=== PATIENT | male | born 1985 | race Caucasian/White ===

== ENCOUNTER 2019-11-09 10:02 | Outpatient (CLI) | payer MEDICAID, SELFPAY ==
--- NOTE | 2019-11-09 | DI.RAD_ITS ---
EXAM: XR KNEE RT 2V AP,LAT INDICATION: pain. COMPARISON: LEFT KNEE 3 VIEW COMPLETE from 02/11/2016 TECHNIQUE: 2D digital imaging was performed. FINDINGS: There are smoothly marginated bony densities adjacent to the tibial tubercle could be related to old Ora-Schlatter disease. The joint spaces are well maintained. A small joint effusion is seen.
== END 2019-11-09 10:22 ==
PROVIDERS: PCP Neuromusculoskeletal Medicine & OMM; Visit Provider Orthopaedic Surgery
DX: M25.561 Pain in right knee (principal); M25.461 Effusion, right knee
CPT/HCPCS: 73560

== ENCOUNTER 2019-11-18 02:06 | Outpatient (CLI) | payer MEDICAID, SELFPAY ==
--- NOTE | 2019-11-18 08:11 | DI.MRI_ITS ---
EXAM: MR LOWER JOINT RT WO CLINICAL HISTORY: PAIN, INTERNAL DERANGEMENT RT KNEE, M23.91. TECHNIQUE: Multiplanar multisequence MRI was performed. COMPARISON: No exams were available for comparison FINDINGS: There is a moderate knee joint effusion. There is slightly abnormal signal in Hoffa fat pad, nonspec ific but could represent impingement or inflammation. No other abnormality seen involving the extens or mechanism. No significant bony signal abnormality seen. Articular cartilage of the joints of the knee appears intact. No meniscal tear. No cruciate ligament tear. No significant collateral ligament injury. IMPRESSION: No evidence of internal derangement. Mildly abnormal signal in Hoffa fat pad directly inferior to th e patella, question mild inflammation or impingement.
== END 2019-11-18 02:26 ==
PROVIDERS: PCP Neuromusculoskeletal Medicine & OMM; Visit Provider Orthopaedic Surgery
DX: M25.561 Pain in right knee (principal); M23.91 Unspecified internal derangement of right knee
CPT/HCPCS: 73721

== ENCOUNTER 2019-12-12 08:15 | Day surgery (SDC) | payer MEDICAID, SELFPAY ==
[2019-12-12] VITALS (7 sets, daily range): BP systolic 94–133; BP diastolic 53–89; PULSE 51–79; RESP 14–20; TEMP 36–37.1; O2SAT 97–100
[2019-12-12] MEDS: Lactated Ringers 1,000 ML 80 ML IV (09:15)
--- NOTE | 2019-12-12 10:19 | NUR.NOTE ---
Nursing Note: Pt preop assessment done. This nurse began process to begin IV. This nurse asked Pt how he does with needles, Pt reports, I don't love them. Pt was sitting in chair. 1st attempt to get IV by this nurse in L hand unsuccessful. This nurse got up and went to get another nurse to help with IV. Nory Cotter RN came in to help. As Nory was looking for an IV site, Pt began to get diaphoretic. Pt was talking to both nurses, then became quite. Pt then passed out/had a vagal response. Pt was then laid flat in recliner, when Pt came to, he attempted to jump out of chair. Once Pt was made aware of where he was, he noticeably calmed down. Pt was reclined flat in recliner. Vitals taken @ 0855: BP: 119/64, HR: 41, O2: 100%. 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 PT vitals taken again at 0905: BP:125/84, T: 36.4, HR: 63, R: 20, O2: 98%. Pt tolerating interventions well. Alirio Henry [employer] B[employer]ENDER in to see Pt, told us to proceed and get the IV in and get the Pt some fluids running. Slade Dale RN was able to establish an IV in the R AC without further problems. Pt tolerated well. notified.
[2019-12-12] MEDS: ceFAZolin 2 GM/50 ML BAG IVPB (10:45)
--- NOTE | 2019-12-12 11:45 | W.PM.DSUDISC ---
Discharge Plan Disposition Patient Disposition: HOME Condition: Good Discharge Details Reason For Visit: Arthroscopy R knee Attending Provider: Phil Thomas Primary Care Provider: Larry Alvarez Meds and New Rx's Prescriptions: New ibuprofen 800 mg tablet 800 mg PO TID Qty: 30 RF: 0 oxycodone-acetaminophen 5-325 mg tablet 1 tab PO Q6H PRN (Reason: pain) Qty: 14 RF: 0 Discharge Instructions Additional Instructions: Crutches to walk. Put as much weight on R leg as your pain allows. Discontinue crutches when you can step on R leg with minimal pain. Apply cryocuff continuously overnite, Tomorrow start to use 4 times/day for 1 hour each time. May remove dressings, shower, and get incisions wet after 48 hours. Leave incisions uncovered when they are dry and sealed. Outpatient physical therapy on Thurs or Fri to begin rehab of R knee post-arthroscopy R knee. Take ibuprofen 3 times/day for 10 days to decrease swelling and inflammation. Take oxycodone for breakthru pain, if needed. Follow up with in 2 weeks. Referrals: Phil Thomas MD [ [facility] STAFF PHYSICIAN] - (f/u in 2 weeks) Equipment/Supplies: Partial Weight Bearing Crutches Activity:: Activity as Tolerated Remove Dressings/Wound Care:: 48 hours Shower/Bathe:: 48 hours Diet:: As Tolerated Discharge Orders Discharge Orders: Discharge Order (Routine); Ordered 12/12/19 Ordered By: Phil Thomas DS: Diagnosis Discharge Diagnosis (1) Internal derangement of right knee: Status: Acute
[2019-12-12] MEDS: oxyCODONE-CR 10 MG TABCR PO (13:02)
--- NOTE | 2019-12-13 17:19 | ROE_ITS ---
DATE OF PROCEDURE: December 12, 2019 PREOPERATIVE DIAGNOSIS: Internal derangement, right knee. POSTOPERATIVE DIAGNOSIS: Same due to synovitis. PROCEDURE: Diagnostic arthroscopy right knee with limited synovectomy. ANESTHESIA: General. SURGEON: Phil Thomas M.D. INDICATIONS: This is a 34-year-old white male with recurrent effusions and pain in his right knee, l imiting activities. He has not responded to conservative treatment. MRI scan showed effusion in his knee but did not provide a specific diagnosis. Because of failure to improve with conservative osvaldo ures and because of the lack of any objective diagnosis, diagnostic arthroscopy was recommended. The patient was advised that at the time of the diagnostic arthroscopy, any pathology that could be angelica ected would be addressed arthroscopically. The risks and complications of the procedure were explain ed to the patient in detail preoperatively. PROCEDURE: The patient was taken to the operating room on 12/12/2019. He was placed supine on the ope rating table and a general anesthetic was administered. The right thigh was placed in the arthroscop ic leg escalera and the right knee was prepped and draped free in the usual sterile fashion. Arthrosco pic portals were established and the right knee was inflated with normal saline solution using the ar throscopy pump. Routine arthroscopic examination then proceeded. Intraoperative photographs were ob tained to document findings. Upon entering the medial compartment he was found to have normal articular cartilage. The medial men iscus appeared intact. Through an anteromedial portal I introduced a right angle probe and the media l meniscus was thoroughly probed under direct vision. It was fully stable and no occult tears of the meniscus were identified. The intercondylar notch showed that the ACL was obscured by erythematous, hypertrophic synovium in th e anterior portion of the knee. Using a 90-degree Arthro-Care high radio frequency cautery wand the hypertrophic synovium was ablated from the anterior portion of the knee until the ACL and PCL were cl early visualized. These ligaments were not only directly visualized with the arthroscope, but I prob ed the ligaments with a right-angle probe, confirming that they were completely stable with no occult injuries. The lateral compartment was then entered. The articular cartilage in the lateral compartment was int act and undamaged. The lateral meniscus appeared to be normal. I probed the lateral meniscus tadeo puga from front to back and it was fully stable with no occult tears. The popliteus tendon was visua lized and was found to be normal. The medial and latter gutter were somewhat obscured by hypertrophic synovium. This synovium was abla yeny with the high radio frequency electrocautery wand. The suprapatellar pouch was clear and was not contracted in any way. The patellofemoral joint showed normal patella tracking and no lesions on th e articular cartilage on either the patella nor in the trochlea of the femur. At this point the knee was copiously irrigated with saline solution using the arthroscopy pump until the outflow was clear. 20 cc's of 0.5% Marcaine with an epinephrine solution, along with 4 mg of morphine, were instilled into the right knee and all instruments were removed from the knee. The arthroscopy portals were inf iltrated with 0.5% Marcaine with an epinephrine solution and were approximated with interrupted #4-0 nylon sutures. The wounds were dressed with Xeroform gauze, sterile gauze 4x4's, ABD pads and wrappe d with 6-inch JENNIFER bandages for a light compressive dressing. The patient tolerated the procedure wel l and was discharged to the recovery room in good condition. The patient was given discharge instructions to use crutches, weightbearing as tolerated to the right leg. He may discontinue the crutches as soon as he can step on his right foot without pain. He may remove his dressings, shower and get his incisions wet after 48 hours. He can leave the incisions u ncovered when they are dry and sealed. He will begin outpatient physical therapy for range of motion and strengthening of his right knee on either or Thursday of this week. He was given a presc ription for inflammation of ibuprofen 800 mg p.o. t.i.d. for ten days. He was given a prescription f or breakthrough pain of Hydrocodone with APAP 5/325, one tablet every six hours, if needed. He will follow-up with me in two weeks.
== END 2019-12-12 14:01 | disposition home or self-care (01) ==
PROVIDERS: PCP Neuromusculoskeletal Medicine & OMM; Visit Provider Orthopaedic Surgery
PROC: (CPT 29870; principal; 2019-12-12 09:30)
DX: M25.561 Pain in right knee (principal); M25.461 Effusion, right knee; M65.9 Synovitis and tenosynovitis, unspecified
CPT/HCPCS: 29876; E0114; J0690; J1100; J1885; J2001; J2250; J2405; J2704